=== PATIENT | female | born 1985 | race Caucasian/White ===

== ENCOUNTER 2021-10-03 12:05 | Outpatient (CLI) | payer BC, SELFPAY ==
[2021-10-03 21:25] LABS: Albumin* 4.4 g/dL (3.3-5.0)
[2021-10-03 21:28] LABS: Bilirubin Direct* 0.4 mg/dL (0.0-0.5); Bilirubin Total* 0.5 mg/dL (0.1-1.5); Cholesterol* 181 mg/dL (90-199); Total Protein* 6.6 g/dL (6.0-8.3); Triglycerides* 190 mg/dL (40-149)
[2021-10-03 21:29] LABS: Alanine Aminotransferase* 18 U/L (4-35); Alkaline Phosphatase* 96 U/L (40-150); Aspartate Amino Transferase* 33 U/L (12-35); HDL Cholesterol* 58 mg/dL (>=50); LDL Cholesterol Calculated 85 mg/dL (<100)
== END 2021-10-03 12:06 | disposition home or self-care (01) ==
PROVIDERS: PCP Emergency Medicine; Visit Provider Emergency Medicine
DX: I10 Essential (primary) hypertension (principal); E66.9 Obesity, unspecified; Z68.35 Body mass index [BMI] 35.0-35.9, adult; K76.0 Fatty (change of) liver, not elsewhere classified
CPT/HCPCS: 80061; 80076

== ENCOUNTER 2021-12-11 07:31 | Outpatient (CLI) | payer BC, SELFPAY ==
[2021-12-11 15:04] LABS: Chloride* 105 mmol/L (96-114); Potassium* 4.9 mmol/L (3.6-5.1); Sodium* 140 mmol/L (135-149)
[2021-12-11 15:06] LABS: Creatinine* 0.7 mg/dL (0.5-1.5); Estimated Glomerular Filt Rate 116 ml/min
[2021-12-11 15:07] LABS: Blood Urea Nitrogen* 11 mg/dL (5-24); Carbon Dioxide* 26 mmol/L (20-32); Glucose* 105 mg/dL (60-115)
== END 2021-12-11 07:32 | disposition home or self-care (01) ==
PROVIDERS: PCP Emergency Medicine; Visit Provider Family Medicine
DX: I10 Essential (primary) hypertension (principal); N92.0 Excessive and frequent menstruation with regular cycle; Z79.899 Other long term (current) drug therapy
CPT/HCPCS: 80048

== ENCOUNTER 2023-05-02 10:38 | Outpatient (CLI) | payer BC, SELFPAY | END 2023-05-02 10:39 | disposition home or self-care (01) | PROVIDERS: PCP Family Medicine; Visit Provider Obstetrics & Gynecology | DX: N92.0 Excessive and frequent menstruation with regular cycle (principal); Z13.29 Encounter for screening for other suspected endocrine disorder | CPT/HCPCS: 84146; 84443 ==

== ENCOUNTER 2023-05-30 10:41 | Outpatient (CLI) | payer BC, SELFPAY ==
--- NOTE | 2023-05-30 11:00 | US_ITS ---
Patient: JEFFREY RIVERA Facility:?[facility] Patient ID:?[id number] Site Patient ID:?[id number]. Site :?1985 Study:?US-Pelvis TA/TV-05/30/2023 11:39:34 AM Ordering Physician:TERRENCE Final Report: INDICATION: menorrhagia COMPARISON: 01/09/2018 TECHNIQUE: 2D hermosillo scale and color Doppler images were acquired of the pelvis using a transabdominal and transvaginal approach. FINDINGS: Sonographic images demonstrate a normal size and smooth outer contour of the uterus. Uterus measures 12.2 cm in length by 5.3 cm in AP diameter by 6.2 cm in transverse dimension. The myometrium has a normal uniform echotexture. The endometrial lining measures 14 mm in composite thickness. Cervical nabothian cysts are present. Previously, the endometrium measured 8 millimeters. The right ovary measures 3.0 x 2.2 x 2.6 cm in size and the left ovary measures 3.7 x 2.8 x 2.7 cm. The ovaries demonstrate normal arterial and venous blood flow on color Doppler analysis. There are no suspicious fluid collections within the cul-de-sac. IMPRESSION: Endometrial thickness 14 millimeters. No endometrial fluid. No uterine fibroid. Dictated by Nicko Larson MD @ 05/30/2023 11:49:27 AM Signed by:?Nicko Larson MD @05/30/2023 11:49:27 AM (Electronic Signature)
== END 2023-05-30 10:42 | disposition home or self-care (01) ==
LOC: US 10:42
PROVIDERS: PCP Family Medicine; Visit Provider Obstetrics & Gynecology
DX: N92.0 Excessive and frequent menstruation with regular cycle (principal); R93.89 Abnormal findings on diagnostic imaging of other specified body structures
CPT/HCPCS: 76830; 76856

== ENCOUNTER 2023-06-13 13:26 | Outpatient (CLI) | payer BC, SELFPAY | END 2023-06-13 13:27 | disposition home or self-care (01) | LOC: FRMREF 13:27 | PROVIDERS: PCP Family Medicine; Visit Provider Family Medicine | DX: I10 Essential (primary) hypertension (principal) | CPT/HCPCS: 82043; 82570 ==

== ENCOUNTER 2023-09-12 10:21 | Outpatient (CLI) | payer BC, SELFPAY | END 2023-09-12 10:22 | disposition home or self-care (01) | PROVIDERS: PCP Family Medicine; Referring Provider Family Medicine; Visit Provider Family Medicine | DX: R82.90 Unspecified abnormal findings in urine (principal) | CPT/HCPCS: 87086 ==

== ENCOUNTER 2023-09-19 07:01 | Day surgery (SDC) | payer BC, SELFPAY ==
--- OUTSIDE RECORDS SUMMARY | 2023-09-19 07:05 | XMS_ITS | Referral Summary ---
Author Organization [place] Address [address] [place] [address]. [place] [address] Care Team Providers Care Deployment Engineer Name Role Phone No Ref-Primary, Physician Primary Care Provider Allergies Active Allergy Reactions Criticality Noted Date Comments No Known Drug Allergy 04/03/2002 Medications Medication Sig Dispensed Refills Start Date End Date Status SERTRALINE HCL 50 MG OR TABSIndications:Depre ssion,Anxiety Start with 1/2 tablet for 7-10 days, then take 1 tablet daily 30 Tab 5 07/01/2009 Active ondansetron (ZOFRAN-ODT) 4 MG ODT tab Take 1 tablet (4 mg) by mouth every 8 hours as needed for nausea 10 tablet 05/29/2021 Active Active Problems Problem Noted Date Diagnosed Date CARDIOVASCULAR SCREENING; LDL GOAL LESS THAN 160 05/11/2009 Anemia 07/27/2008 Streptococcal carrier 03/19/2008 Overview: GBS bacturia; prophylax in labor Depressive disorder, not elsewhere classified Overview: First Diagnosed in 02 Infectious mononucleosis 07/17/2003 Bulimia 05/03/2002 Depression Resolved Problems Problem Noted Date Diagnosed Date Resolved Date Supervision of normal first 03/16/2008 12/14/2008 Overview: Dr. Galvan Immunizations Name Administration Dates Next Due DTAP (<7y) 10/07/1992 HIB (PRP-T) 01/14/1989 HepB 11/21/1994,06/21/1994,05/16/1994 Historical DTP/aP 01/16/1997,01/14/1989,10/12/18 88,1987 Influenza (H1N1) 02/25/2009 Influenza (IIV3) PF 12/14/2008 MMR 05/19/1998,10/10/1988 Meningococcal ACWY (Menactra??) 12/10/2005 OPV, trivalent, live 10/07/1992,01/14/1989 Social History Tobacco Use Types Packs/Day Years Used Date Smoking Tobacco: Every Day Cigarettes 0.5 5 Alcohol Use Standard Drinks/Week Comments Yes 0 (1 standard drink = 0.6 oz pur e alcohol) occasional use Adolescent Education Answer Date Record ed Getting School Help Needed Not on file 01/06 Sex and Gender Information Value Date Recorded Sex Assigned at Not on file Gender Identity Not on file Sexual Orientation Not on file Last Filed Vital Signs Vital Sign Reading Time Taken Comments Blood Pressure 127/90 05/29/2021 2:15 AM COOK STARCH Pulse 97 05/29/2021 2:30 AM COOK STARCH Temperature 36 ??C (96.8 ??F) 05/29/2021 12:26 AM COOK STARCH Respiratory Rate 16 05/29/2021 12:26 AM COOK STARCH Oxygen Saturation 98% 05/29/2021 2:30 AM COOK STARCH Inhaled Oxygen Concentration - - Weight 75.8 kg (167 lb 3.2 oz) 07/01/2009 3:53 P M CDT Height 165.1 cm (5' 5) 07/01/2009 3:53 PM CDT Body Mass Index 27.82 07/01/2009 3:53 PM CDT Plan of Treatment Not on file Procedures Procedure Name Priority Date/Time Associated Diagnosis Comments BASIC METABOLIC PANEL STAT 05/29/2021 12:36 AM C[facility] STARCH HCL HIV 1 & 2 ANTIBODY Routine 03/04/2008 5:43 PM COOK STARCH Supervision of Normal First HCL PAP THIN LAYER SCREEN Routine 02/18/2008 12:00 AM COOK STARCH Screening for Malignant Neoplasm of the Cervix Routine General Medical Examination at a Health Care Facility from Last 3 Months or Most Recently Relevant to Health Maintenance Results * (ABNORMAL) Basic metabolic panel (05/29/2021 12:36 AM COOK STARCH) Sodium 139 133 - 144 mmol/L 05/29/2021 12:58 AM [facility] Potassium 4.8 3.4 - 5.3 mmol/L 05/29/2021 12:58 AM [facility] Chloride 110(H) 94 - 109 mmol/L 05/29/2021 12:58 AM [facility] Carbon Dioxide (CO2) 23 20 - 32 mmol/L 05/29/2021 12:58 AM [facility] Anion Gap 6 3 - 14 mmol/L 05/29/2021 12:58 AM [facility] Urea Nitrogen 15 7 - 30 mg/dL 05/29/2021 12:58 AM [facility] Creatinine 0.68 0.52 - 1.04 mg/dL 05/29/2021 12:58 AM [facility] Calcium 8.9 8.5 - 10.1 mg/dL 05/29/2021 12:58 AM [facility] Glucose 118(H) 70 - 99 mg/dL 05/29/2021 12:58 AM [facility] GFR Estimate >90 >60 mL/min/1.7 3m2 05/29/2021 12:58 AM [facility] Comment:Effective March 022020 eGFRcr in adults is calculated using the 2020 CKD-EPI creatinine equation which includes age and gender (Marichuy et al., NEJM, DOI: 10.1056/JNTZaf1186287) Blood STRUCTURE OF RIGHT UPPER LIMB / Unknown Venipuncture / Unknown 05/29/2021 12:36 AM [facility] 05/29/2021 12:39 AM [facility] Halle Omalley MD LAB - BLOOD [facility] Organization Address City/State/ZIP Co de Phone Number LABORATORY [facility] [address] Lab (1st floor, no room number) [place] [address], [facility] [phone] * HIV 1 & 2, SCREEN (03/04/2008 5:43 PM COOK STARCH) [facility] [address] HIV 1&2 Antibody Negative [facility] 03/04/2008 5:43 PM COOK STARCH 03/04/2008 5:48 PM [facility] Giovanna Galvan MD LABORATORY [facility] * A THIN LAYER PAP SCREEN (02/18/2008 12:00 AM [facility] STARCH) PAP NIL COPATH Copath Report Patient Name: LILLI RIVERA MR#: [id number] Specimen #: [id number] Collected: 02/18/2008 Received: 02/20/2008 Reported: 02/23/2008 09:53 Ordering Phy(s): DORIS TAMEZ SPECIMEN/STAIN PROCESS: Pap thin layer prep screening ([facility]) ? Pap-Cyto x 1, Reflex HPV x 1 SOURCE: Cervical, endocervical Pap thin layer prep screening ([facility]) SPECIMEN ADEQUACY: Satisfactory for evaluation. -Transformation zone component present. CYTOLOGIC INTERPRETATION: Negative for Intraepithelial Lesion or Malignancy Electronically signed out by: SAMIA Perez (ASCP) Processed and screened at [facility] CLINICAL HISTORY: LMP: 01/11/08 , TESTING LAB LOCATION: [address] ??[address] COLLECTION SITE: Client: ??[facility] Location: THAD (Joseph) ANITA 02/18/2008 02/20/2008 10: 16 AM [facility] Doris Tamez MD LABORATORY [facility] from Last 3 Months or Most Recently Relevant to Health Maintenance Care Teams Deployment Engineer Relationship Specialty Start Date End Date No Ref-Primary, Physician PCP - General 05/29/21
--- OUTSIDE RECORDS SUMMARY | 2023-09-19 07:05 | XMS_ITS | Clinical Summary ---
Author Organization [facility] Address [address] [place] [address]. [id number] Care Team Providers Care Electronic Field Service Engineer Name Role Phone No Ref-Primary, Physician [...] ACWY (Menactra??) 12/10/2005 OPV, trivalent, live 10/07/1992,01/14/1989 Family History Medical History Relation Comments Diabetes Sister age 9 insulin de pendent. Anesthesia Reaction No family hx of reaction Blood Disease No family hx of Relation Status Comments Father Alive Mother Alive Sister Alive Social History Tobacco Use Types Packs/Day Years [...] Comments Blood Pressure 127/90 05/29/2021 2:15 AM PASSPORT APPLICATION EXAMINER Pulse 97 05/29/2021 2:30 AM PASSPORT APPLICATION EXAMINER Temperature 36 ??C (96.8 ??F) 05/29/2021 12:26 AM PASSPORT APPLICATION EXAMINER Respiratory Rate 16 05/29/2021 12:26 AM PASSPORT APPLICATION EXAMINER Oxygen Saturation 98% 05/29/2021 2:30 AM PASSPORT APPLICATION EXAMINER Inhaled Oxygen Concentration - - Weight 75.8 kg (167 lb 3.2 oz) 07/01/2009 3:53 P M CDT Height 165.1 cm (5' 5) 07/01/2009 3:53 PM CDT Body Mass Index 27.82 07/01/2009 3:53 PM CDT Plan of Treatment Health Maintenance Due Date Last Done Comments ADVANCE CARE PLANNING 1987 ANNUAL REVIEW OF HM ORDERS 1987 IPV IMMUNIZATION (3 of 3 - 4-dose series) 04/09/1993 10/07/1992, 01/14/1989 Pneumococcal Vaccine: Pediatrics (0 to 5 Years) and At-Risk Patients (6 to 64 Years) (1 of 2 - PCV) 06/09/1993 DTAP/TDAP/TD IMMUNIZATION (5 - Tdap) 06/09/1998 01/16/1997, 10/07/1992, 01/14/1989, Additional history exists HEPATITIS C SCREENING 06/09/2005 YEARLY PREVENTIVE VISIT 02/17/2009 02/18/2008 PAP 02/17/2011 02/18/2008 COVID-19 Vaccine ( season) 2022 PHQ-2 (once per calendar year) 2023 INFLUENZA VACCINE (Season Ended) 2023 02/25/2009, 12/14/2008 GLUCOSE 05/29/2024 05/29/2021, 08/30, 04/03/2002 HEPATITIS B IMMUNIZATION Completed 995, 06/21/1994, 05/16/1994 MENINGITIS IMMUNIZATION Completed 12/10/2005 HIV SCREENING Completed 03/04/2008, 09/12/2005 HPV IMMUNIZATION Aged Out No longer e ligible based on patient's age to complete this topic RSV MONOCLONAL ANTIBODY Aged Out No l onger eligible based on patient's age to complete this topic Procedures Procedure Name Priority Date/Time Associated Diagnosis Comments BASIC METABOLIC PANEL STAT 05/29/2021 12:36 AM PASSPORT APPLICATION EXAMINER HCL HIV 1 & 2 ANTIBODY Routine 03/04/2008 5:43 PM PASSPORT APPLICATION EXAMINER Supervision of Normal First HCL PAP THIN LAYER SCREEN Routine 02/18/2008 12:00 AM PASSPORT APPLICATION EXAMINER Screening for Malignant Neoplasm of the Cervix Routine General Medical Examination at a Health Care Facility from Last 3 Months or Most Recently Relevant to Health Maintenance Results * (ABNORMAL) Basic metabolic panel (05/29/2021 12:36 AM PASSPORT APPLICATION EXAMINER) Sodium 139 133 - 144 mmol/L 05/29/2021 12:58 AM PASSPORT APPLICATION EXAMINER [facility] Potassium 4.8 3.4 - 5.3 mmol/L 05/29/2021 12:58 AM PASSPORT APPLICATION EXAMINER [facility] Chloride 110(H) 94 - 109 mmol/L 05/29/2021 12:58 AM PASSPORT APPLICATION EXAMINER [facility] Carbon Dioxide (CO2) 23 20 - 32 mmol/L 05/29/2021 12:58 AM PASSPORT APPLICATION EXAMINER [facility] Anion Gap 6 3 - 14 mmol/L 05/29/2021 12:58 AM PASSPORT APPLICATION EXAMINER [facility] Urea Nitrogen 15 7 - 30 mg/dL 05/29/2021 12:58 AM PASSPORT APPLICATION EXAMINER [facility] Creatinine 0.68 0.52 - 1.04 mg/dL 05/29/2021 12:58 AM PASSPORT APPLICATION EXAMINER LABORATORY Calcium 8.9 8.5 - 10.1 mg/dL 05/29/2021 12:58 AM PASSPORT APPLICATION EXAMINER LABORATORY Glucose 118(H) 70 - 99 mg/dL 05/29/2021 12:58 AM PASSPORT APPLICATION EXAMINER LABORATORY GFR Estimate >90 >60 mL/min/1.7 3m2 05/29/2021 12:58 AM PASSPORT APPLICATION EXAMINER LAB[facility]ATORY Comment:Effective March 022020 eGFRcr in adults is calculated using the 2020 CKD-EPI creatinine equation which includes age and gender (Marichuy et al., NEJM, DOI: 10.1056/WBHDxk1291292) Blood STRUCTURE OF RIGHT UPPER LIMB / Unknown Venipuncture / Unknown 05/29/2021 12:36 AM PASSPORT APPLICATION EXAMINER 05/29/2021 12:39 AM PASSPORT APPLICATION EXAMINER Halle Omalley MD LAB - BLOOD [facility] LABORATORY [facility] [address] Lab (1st floor, no room number) [place] [address], [facility] [phone] * HIV 1 & 2, SCREEN (03/04/2008 5:43 PM PASSPORT APPLICATION EXAMINER) HIV 1&2 Antibody Negative NEG [facility] 03/04/2008 5:43 PM PASSPORT APPLICATION EXAMINER 03/04/2008 5:48 PM PASSPORT APPLICATION EXAMINER Giovanna Galvan MD LABORATORY [facility] * A THIN LAYER PAP SCREEN (02/18/2008 12:00 AM PASSPORT APPLICATION EXAMINER) PAP [facility] Report Patient Name: LILLI RIVERA MR#: [id number] Specimen #: [id number] Collected: 02/18/2008 Received: 02/20/2008 Reported: 02/23/2008 09:53 [...] SAMIA Perez (ASCP) Processed and screened at [facility], [facility] CLINICAL HISTORY: LMP: 01/11/08 , TESTING LAB LOCATION: [address] ??[address] COLLECTION SITE: Client: ??[facility] Location: [facility]AD HOWARD (R) 02/18/2008 02/20/2008 10: 16 AM PASSPORT APPLICATION EXAMINER Doris Tamez MD LABORATORY [facility] from Last 3 Months or Most Recently Relevant to Health Maintenance Care Teams Electronic Field Service Engineer Relationship Specialty Start Date End Date No Ref-Primary, Physician PCP - General 05/29/21
--- OUTSIDE RECORDS SUMMARY | 2023-09-19 07:06 | XMS_ITS | Encounter Summary ---
Author Organization [facility] Address [address] [place] [id number] Care Team Providers Care Metallic Yarn Slitting Machine Operator Name Role Phone No Ref-Primary, Physician Primary Care Provider Encounter Details Date Type Department Care Team (Late st Contact Info) Description 05/29/2021 Documentation Only INTERFACED REPORT Unknown, Provider Social History Tobacco Use Types Packs/Day Years Used Date Smoking Tobacco: Every Day Cigarettes 0.5 5 Alcohol Use Standard Drinks/Week Comments Yes 0 (1 standard drink = 0.6 oz pur e alcohol) occasional use Sex and Gender Information Value Date Recorded Sex Assigned at Not on file Gender Identity Not on file Sexual Orientation Not on file COVID-19 Exposure Response Date Recorded In the last month, have you been in contact with someone who was confirmed or suspected to have Coronavirus / COVID-19? No / Unsure 05/29/2021 12:19 AM CERTIFIED MEDICAL CODING SPECIALIST documented as of this encounter Plan of Treatment Not on file documented as of this encounter Visit Diagnoses Not on filedocumented in this encounter Care Teams Metallic Yarn Slitting Machine Operator Relationship Specialty Start Date End Date No Ref-Primary, Physician PCP - General 05/29/21 documented as of this encounter
--- OUTSIDE RECORDS SUMMARY | 2023-09-19 07:06 | XMS_ITS | Encounter Summary ---
Author Organization [facility] Address [address] [place] [address]. [place] [address] Care Team Providers Care Digital Print Operator Name Role Phone Maira Rollins MD Primary Care Provider [phone] None Primary Care Provider Yumiko Marquis MD Primary Care P rovider No Ref-Primary, Physician Primary Care Provider Encounter Details Date Type Department Care Team (Late st Contact Info) Description 10/24/2008 [facility] [address] [place] [address] Mateo Bass MD NO INFO AVAILABLE 10/23/22 OB DELIVERY RECORD Social History Tobacco Use Types Packs/Day Years Used Date Smoking Tobacco: Every Day Cigarettes 0.5 5 Alcohol Use Standard Drinks/Week Comments Yes 0 (1 standard drink = 0.6 oz pur e alcohol) occasional use Sex and Gender Information Value Date Recorded Sex Assigned at Not on file Gender Identity Not on file Sexual Orientation Not on file documented as of this encounter Plan of Treatment Not on file documented as of this encounter Visit Diagnoses Diagnosis OB DELIVERY RECORD- Primary documented in this encounter Care Teams Digital Print Operator Relationship Specialty Start Date End Date Maira Rollins MD PCP - General 02/18/08 03/28/10 None PCP - General 03/29/10 06/27/10 Yumiko March MD [address] [place] [address] PCP - General Internal Medicine 06/28/10 05/28/21 No Ref-Primary, Physician PCP - General 05/29/21 documented as of this encounter
[2023-09-19 07:13] VITALS: BP 131/77; PULSE 87; RESP 16; TEMP 36.4; O2SAT 98; BMI 34.5
[2023-09-19] MEDS: SODIUM CHLORIDE 0.9 % (FLUSH) 10 ML SYRINGE IVF (07:30)
[2023-09-19] MEDS: LACTATED RINGERS 1000 ML 1,000 ML 100 ML IV (07:30)
--- NOTE | 2023-09-19 07:31 | W.PM.H&PU ---
History & Physical Update History & Physical Update H&P Reviewed and patient assessed: No changes noted
[2023-09-19 07:40] LABS: Ur HCG Qualitative* Negative (Negative)
[2023-09-19 07:40] LABS: Hemoglobin* 13.4 gm/dL (12.0-16.0)
[2023-09-19 07:55] LABS: Creatinine* 0.6 mg/dL (0.5-1.5); Est. Creatinine Clearance* 111.93; Estimated Glomerular Filt Rate 119 ml/min
--- NOTE | 2023-09-19 08:53 | P.GYNPRC_ITS ---
Procedure Note Time Seen by Provider: 08:54 Date of procedure: 09/19/23 Will [facility] bill your pro fee for this procedure?: Yes Procedure: Preoperative diagnosis: 38 year-old with heavy menstrual bleeding. Postoperative diagnosis: Same Procedure: Hysteroscopy, Dilation and Curettage using the Truclear incisor, and endometrial ablation Anesthesia: Conscious sedation, paracervical block. Surgeon: Fatimah Briseno MD Market Development Director: None Estimated blood loss: <5 mL Specimen: Endometrial curettings to pathology. Findings: Exam under anesthesia: Uterus: anteverted position - fixed, 6 week sized, mobile, with no masses or nodularity palpable. Uterus sounded to 11 cm. Cervix: 5 cm. Then cavity length: 6 cm. No adnexal masses or nodularity palpable. On hysteroscopy: Normal, fluffy endometrium, normal bilateral tubal ostia Procedure: Lilli was taken to the operating operating room more conscious sedation was found to be adequate. The patient was placed on in the dorsal lithotomy position and an exam under anesthesia was performed with findings stated above. She was then prepped and draped in a normal sterile manner. A bivalve speculum was placed in the vagina. The cervix appears nulliparous. Otherwise no abnormalities. The paracervical block was placed using 1% lidocaine with epi, 5 mL was injected at the 4 and 8 o'clock positions on the cervix. The anterior lip of the cervix was grasped with a tenaculum clamp. The cervix dilated to Hegar 6. The uterus sounded to 11 cm. The Truclear hysteroscope was advanced into the uterus. A diagnostic hysteroscopy was performed with normal saline as the insufflation medium. Findings are stated above. The Truclear incisor was then advanced through the camera. The curettage was performed with the incisor. The incisor was then removed. The endometrial cavity appeared normal. Saline deficit at the end of the procedure 50 mL. Total saline used 350 mL. The hysteroscope was removed. The cervix was then dilated to Hegar 8. The Vanessa device was advanced into the uterus. The cavity check was completed and the ablation took place over 2 min. Patient received 15 mg of Toradol IV. The Vanessa was removed, the hysteroscope readvanced to document ablation of the entire cavity. The hysteroscope was then removed. The Allis clamp removed from the anterior lip of the cervix. Nothing needed for hemostasis. The patient tolerated this procedure well. Sponge, lap and instrument counts were correct x2 at the end of the procedure and the patient was taken to the recovery area in stable condition. Surgical debrief and specimen review performed Specimen: 1. Endometrial curetting
--- NOTE | 2023-09-19 09:13 | W.ANESCHARGE ---
Anesthesia Charges Start Date/Time Anesthesia Start Date: 09/19/23 Anesthesia Start Time: 08:59 Stop Date/Time Anesthesia Stop Date: 09/19/23 Anesthesia Stop Time: 09:58
[2023-09-19 09:56] VITALS: BP 91/69; PULSE 94; RESP 16; TEMP 36.9; O2SAT 96
[2023-09-19 10:00] VITALS: BP 112/80; PULSE 70; RESP 16; O2SAT 98
[2023-09-19 10:15] VITALS: BP 117/89; PULSE 69; RESP 16; O2SAT 98
[2023-09-19 10:33] VITALS: BP 137/73; PULSE 68; RESP 16; O2SAT 99
[2023-09-19] MEDS: ACETAMINOPHEN 500 MG TABLET 1000 MG PO (10:35)
== END 2023-09-19 10:47 | disposition home or self-care (01) ==
LOC: OR 07:03
PROVIDERS: PCP Family Medicine; Visit Provider Obstetrics & Gynecology
PROC: 0UF98ZZ Fragmentation in Uterus, Via Natural or Artificial Opening Endoscopic (ICD-10-PCS; CPT 58563; principal; 2023-09-19 08:15)
DX: N92.0 Excessive and frequent menstruation with regular cycle (principal)
CPT/HCPCS: 58563; 00952; 36415; 81025; 82565; 85018; 88300; A9270; J1100; J1885; J2250; J2405; J2704; J3010; J7120